=== PATIENT | female | born 1950 | race Caucasian/White ===

== ENCOUNTER → 2022-01-04 14:51 | Outpatient (CLI) | payer MEDICARE, BC, SELFPAY ==
--- NOTE | 2022-01-04 | DI.US.S_ITS ---
PROCEDURE: US PELVIC COMPLETE INDICATIONS: Disseminated malignant neoplasm TECHNIQUE: Real-time scanning was performed of the pelvic organs, with image documentation. Additional endovaginal scanning was necessary due to incomplete visualization of the adnexal and endometrial structures by transabdominal scanning. COMPARISON: [facility], US, PELVIC COMPLETE, 12/14/2010, 14:47. FINDINGS: Uterus: Uterus is anteverted and normal in size at 5.6 x 2.3 x 3.6 cm. The myometrium is homogeneous. The endometrium measures 2 mm combined thickness. No focal uterine mass Ovaries: The right ovary measures 35 mm diameter. Left ovary measures 23 mm diameter. Calcifications are seen within the right ovary. No free fluid. Other: No pathologic free abdominal or pelvic fluid. IMPRESSION: No acute process. We strive to produce accurate, complete, and clear reports of imaging services. To assist us in improving patient care, this report was composed using standard report templates and voice recognition software. Therefore, it may contain abnormal punctuation, insertions and/or omissions. Occasional wrong-word or sound-alike substitutions may occur. Though we review the report and make efforts to correct it, we do recommend that the report be read carefully in proper context to recognize any text inaccuracies. Dictated by: Bisi Ewing M.D. on 01/04/2022 at 17:00 Approved by: Bisi Ewing M.D. on 01/04/2022 at 17:01
== END ==
PROVIDERS: PCP Nurse Practitioner Family; Referring Provider Nurse Practitioner Family; Visit Provider Nurse Practitioner Family
DX: C80.0 Disseminated malignant neoplasm, unspecified (principal)
CPT/HCPCS: 76856

== ENCOUNTER → 2022-01-06 08:46 | Outpatient (CLI) | payer MEDICARE, OTHER, SELFPAY ==
--- NOTE | 2022-01-06 08:49 | DI.NM.S_ITS ---
PROCEDURE: NM PET CT FUSION SKULL 2 THIGH RADIOPHARMACEUTICAL: 10 mCi F-18 fluorodeoxyglucose IV. INDICATIONS: PS/restaging breast ca TECHNIQUE: After intravenous administration of F-18 fluoro-deoxyglucose (FDG), noncontrast CT images were obtained for attenuation correction and anatomic localization. A series of overlapping emission PET images was then obtained. The patient's pretest fasting blood glucose level as measured by glucometer was 80 mg/dl. The area imaged spanned from the skull base to the upper thighs. COMPARISON: [facility], RG, CT ABDOMEN/PELVIS WITH CONTRAST, 12/18/2021, 14:23. FINDINGS: Head and neck: No soft tissue masses in the neck. No enlarged cervical or supraclavicular lymph nodes; no abnormal hai tracer uptake. Salivary and thyroid glands appear normal. Sinuses and mastoids are clear. There are vascular calcifications. Thorax: No enlarged mediastinal, hilar, or axillary lymph nodes. No abnormal hai tracer uptake. No acute pulmonary opacities. No pleural effusions or pneumothorax. Heart size is normal. No pericardial effusion. Small hiatal hernia. Coronary calcifications. Nonspecific nonenlarged mildly hypermetabolic right hilar node measuring SUV max of 2.6. Mildly hypermetabolic right costophrenic angle node measuring at max SUV of 2.8, measuring 7 millimeters in short axis (3/110). Abdomen and pelvis: Liver uptake is heterogeneous, with increased metabolism at the capsule. Hypermetabolic left retroperitoneal para-aortic lymph node with a max SUV of 3.3, measuring 8 millimeters in short axis. Presumed malignant ascites and diffuse peritoneal carcinomatosis, particularly in the anterior pelvis and cul-de-sac, with a max SUV of 9.3. The carcinomatosis measures a thickness of 2.5 centimeters in the left lower quadrant. Gallbladder is under distended. No biliary ductal dilation. Spleen is not enlarged. No adrenal nodule. No hydronephrosis. Atherosclerotic calcifications, without aneurysm. There is nonspecific uptake in the bowel. No bowel obstruction. The stomach is mildly distended. Normal bladder wall thickness. Bones: No definite hypermetabolic osseous lesion. Uptake may be due to degenerative changes. IMPRESSION: Diffuse peritoneal hypermetabolic carcinomatosis and presumed malignant ascites. Hypermetabolic left retroperitoneal para-aortic lymph node is favored to be metastatic. Of note, omental caking is amenable to percutaneous biopsy if confirmation of metastasis is necessary. Nonspecific mildly hypermetabolic right hilar and right cardiophrenic nonenlarged lymph nodes. Heterogeneous uptake around the periphery of the liver is likely due to peritoneal disease. Dictated by: Jean Monahan M.D. on 01/06/2022 at 13:50 Approved by: Jean Monahan M.D. on 01/06/2022 at 14:07
== END ==
PROVIDERS: PCP Nurse Practitioner Family; Visit Provider Family Medicine
DX: C50.919 Malignant neoplasm of unspecified site of unspecified female breast (principal); C78.6 Secondary malignant neoplasm of retroperitoneum and peritoneum

== ENCOUNTER → 2022-03-11 10:14 | Outpatient (CLI) | payer MEDICARE, OTHER, SELFPAY ==
[2022-03-11 10:59] LABS: COVID19 -Nasal RAPID Negative (Negative)
== END ==
PROVIDERS: PCP Internal Medicine Cardiovascular Disease; Visit Provider Surgery
DX: Z01.812 Encounter for preprocedural laboratory examination (principal); Z20.822 Contact with and (suspected) exposure to COVID-19
CPT/HCPCS: 87635

== ENCOUNTER 2022-03-11 11:15 | Day surgery (SDC) | payer MEDICARE, BC, SELFPAY ==
[2022-03-11 14:25] VITALS: BP 141/82; PULSE 81; RESP 16; TEMP 36.9; O2SAT 97; BMI 16.9
[2022-03-11] MEDS: LACTATED RINGERS 1,000 ML 42 ML IV (14:49)
--- NOTE | 2022-03-11 16:14 | PM.HP.1 ---
History of Present Illness History of Present Illness Date Patient Seen: 03/11/22 Time Patient Seen: 16:14 Chief complaint: PORT PLACEMENT Narrative: Dee Dee is a 71-year-old woman who has a recent diagnosis of breast cancer and possible peritoneal carcinomatosis. A Port-A-Cath has been requested for IV infusion access. Patient History Family & Social History Social History: household members spouse Tobacco & Substance use: Smoking Status Former smoker alcohol intake current alcohol intake frequency a few times a week Substance Use Type marijuana Meds Home Medications and Allergies Home Medications Medication Instructions Recorded Confirmed Type Coenzyme Q10 (#CO ENZYME Q-10) 50 mg PO ##0 12/11/10 History Dimethyl Sulfone (#MSM) 250 mg PO ##0 12/11/10 History MULTIVITAMIN (#MULTIPLE VITAMINS) 1 cap PO ##0 12/11/10 History VITAMIN D 400 iu PO ##0 12/11/10 History Exam Vital Signs (past 8 hours): - 03/11/22 14:25 Temperature 98.5 F Pulse Rate 81 Respiratory Rate 16 Blood Pressure 141/82 H Pulse Oximetry 97 Oxygen Delivery Method Room Air Oxygen Delivery Method Room Air Const General: comfortable and No acute distress Assessment & Plan Assessment and plan (1) Breast cancer: Qualifiers: Breast location: unspecified site of breast Estrogen receptor status: unspecified Patient sex: female Laterality: left Qualified Code(s): C50.912 - Malignant neoplasm of unspecified site of left female breast Status: Acute Plan We reviewed the risks and benefits of for Port-A-Cath placement for IV access. She wishes to proceed. Time Spent With Patient Critical Care time: I spent a total of [] minutes of critical care time on this patient's care today; this time is exclusive of procedural time.
[2022-03-11] MEDS: CEFAZOLIN 2 GM/100 ML PREMIX 100 ML IV (16:28)
--- NOTE | 2022-03-11 16:45 | SUR.OPER ---
Supine on padded OR bed, head on pillow, arms padded and tucked at sides, legs uncrossed, safety belt at thigh, tape over blanket over lower legs .
[2022-03-11] MEDS: BUPIVACAINE 0.5% (PF) VIAL 30 ML INJ (16:52)
--- NOTE | 2022-03-11 17:06 | DI.RAD.S_ITS ---
PROCEDURE: XR CHEST 1V INDICATIONS: PORT A CATH INNER OP TECHNIQUE: One view of the chest was acquired. COMPARISON: [facility], , XR CHEST 1V, 03/11/2022, 17:15. FINDINGS: Surgical changes and devices: Right-sided port with the catheter tip at the cavoatrial junction. Visualized lungs appear clear. IMPRESSION: Intraoperative guidance provided. Dictated by: Andry Delarosa M.D. on 03/11/2022 at 17:51 Approved by: Andry Delarosa M.D. on 03/11/2022 at 17:52
[2022-03-11 17:18] VITALS: BP 163/91; PULSE 82; RESP 15; TEMP 36.4; O2SAT 97
--- NOTE | 2022-03-11 17:19 | PM.OP.1 ---
Operative Date/Time/Diagnoses Date of procedure: 03/11/22 Time of procedure: 17:19 Pre-op diagnosis: Breast cancer and possible peritoneal carcinomatosis Post-op diagnosis: same Procedure & Clinicians Procedure: Port-A-Cath Same procedure as scheduled: Yes Surgeon: Jonas Boone Operative Notes Procedure in detail: The patient was brought to the operating room, placed on the table in the supine position with the arms tucked. Ancef was administered. Anesthesia was induced via LMA. A time-out was performed. The right chest and neck were prepped and draped in the usual fashion. An ultrasound was used to identify the right internal jugular vein. The vein was noted to be patent. An image was saved and printed and placed in the chart. The right internal jugular vein was accessed via the Seldinger technique under ultrasound guidance. The guidewire was inserted into the superior vena cava. C-arm was used to confirm proper position of the guidewire in the superior vena cava and no ectopy was noted. The needle was removed and the wire was clamped to the drape. Next, a port pocket was created just inferior to the medial clavicle using a 15 blade scalpel. Dissection was carried down to the pectoral fascia. A subcutaneous pocket was created using a combination of cautery and blunt dissection. Next, the port which was primed with injectable saline, was secured to the fascia with 3-0 PDS sutures left untied and clamped. The neck incision was extended with an 11 blade scalpel to approximately 5 mm. The dilator and peel-away sheath were inserted over the wire without resistance. The catheter was passed from the neck incision to the chest incision in the subcutaneous tissue using the tunnelling device. The wire and dilator were then removed and the catheter inserted through the peel-away sheath to deliver it into the superior vena cava. The depth of the device was checked using the C-arm and the tip of the device was noted to be in the distal superior vena cava. The exterior portion of the catheter was then trimmed and attached to the port using the strain relief collar. A final image showed good position of the catheter with no kinks. The port was then tucked into the subcutaneous pocket and the sutures were tied to secure the device. The port was then accessed using the Munoz needle and it was noted that the device vinay and flushed easily without resistance. Approximately 4 mL of heparinized saline were injected into the device. The skin incisions were closed with 3-0 Vicryl and 4-0 Monocryl. Steri-Strips were applied patient was awakened and brought to recovery room EBL: 5 mL Ultrasound: The right internal jugular vein was patent. The right carotid artery was visualized adjacent to the vein. Venipuncture was visualized in real-time using the ultrasound. Fluoroscopy: The device was positioned appropriately with the distal end of the catheter near the atriocaval junction. There were no kinks in the catheter. Post-operative Disposition: PACU
[2022-03-11 17:23] VITALS: BP 162/93; PULSE 83; RESP 15; O2SAT 99
[2022-03-11 17:28] VITALS: BP 157/94; PULSE 81; RESP 15; O2SAT 99
--- NOTE | 2022-03-11 17:30 | DI.RAD.S_ITS ---
PROCEDURE: XR CHEST 1V INDICATIONS: POST OP PORT A CATH TECHNIQUE: One view of the chest was acquired. COMPARISON: [facility], CR, XR CHEST 1V, 03/11/2022, 17:10. FINDINGS: Surgical changes and devices: Right-sided port with the catheter tip at the cavoatrial junction. Left axillary clips. Lungs and pleura: Lungs are clear. No pleural effusions or pneumothorax. Mediastinum: Mediastinal contours appear normal. Heart size is normal. Bones and chest wall: No suspicious bony lesions. Overlying soft tissues appear unremarkable. IMPRESSION: Right-sided port with the catheter tip at the cavoatrial junction. Dictated by: Andry Delarosa M.D. on 03/11/2022 at 17:52 Approved by: Andry Delarosa M.D. on 03/11/2022 at 17:53
[2022-03-11 17:33] VITALS: BP 156/89; PULSE 80; RESP 11; TEMP 36.3; O2SAT 99
[2022-03-11 17:38] VITALS: BP 159/90; PULSE 79; RESP 13; TEMP 36.4; O2SAT 99
== END 2022-03-11 17:59 | disposition home or self-care (01) ==
PROVIDERS: PCP Internal Medicine Cardiovascular Disease; Referring Provider Surgery; Visit Provider Surgery
PROC: (CPT 36561; principal; 2022-03-11 15:00)
DX: C50.912 Malignant neoplasm of unspecified site of left female breast (principal); Z20.822 Contact with and (suspected) exposure to COVID-19; Z01.812 Encounter for preprocedural laboratory examination
CPT/HCPCS: 36561; 71045; 76000; 87635; C9803; C1788; J0690; J1100; J1644; J2405; J2704; J3010

== ENCOUNTER 2022-03-13 10:30 | Day surgery (SDC) | payer MEDICARE, OTHER, SELFPAY ==
[2022-03-13 11:06] VITALS: BP 126/82; PULSE 78; RESP 16; TEMP 36.8; O2SAT 98
--- NOTE | 2022-03-13 11:41 | SUR.HOLD ---
Dr Boone at bedside accessing right chest wall port-a-cath with 20 gauge -0.75 needle using sterile technique. Good blood return noted; flushes well with saline and heparin flush given. Tolerated well. Munoz needle left in place due to plan for chemotherapy this afternoon with oncologist on [facility]. Home with friend in stable condition. No complications.
== END 2022-03-13 11:43 | disposition home or self-care (01) ==
PROVIDERS: Surgery; PCP Internal Medicine Cardiovascular Disease; Referring Provider Surgery; Visit Provider Surgery
DX: Z53.09 Procedure and treatment not carried out because of other contraindication (principal)

== ENCOUNTER 2022-04-02 09:36 | Emergency (ER) | payer MEDICARE, BC, SELFPAY ==
[2022-04-02] VITALS (8 sets, daily range): BP systolic 121–142; BP diastolic 69–83; PULSE 80–91; RESP 14; TEMP 36.8; O2SAT 96–98; BMI 16.5
--- NOTE | 2022-04-02 10:26 | DI.CT.S_ITS ---
PROCEDURE: CT ABDOMEN PELVIS W CON INDICATIONS: Abdominal distention, history of ovarian cancer TECHNIQUE: After the administration of oral and IV contrast, axial sections were acquired from the lung bases to the pubic symphysis. Coronal and sagittal reformats were performed. For radiation dose reduction, the following was used: automated exposure control, adjustment of mA and/or kV according to patient size. COMPARISON: [facility], , CT ABDOMEN/PELVIS WITHOUT CONTRAST, 12/17/2021, 13:56. [facility], , CT ABDOMEN/PELVIS WITH CONTRAST, 12/18/2021, 14:23. [place], [place], [place] PET CT FUSION SKULL 2 THIGH, 01/06/2022, 10:26. FINDINGS: Image quality: Excellent. Lung bases: Unremarkable. Heart: No significant findings. ABDOMEN: Liver: Unremarkable. Gallbladder: Unremarkable. Biliary ducts: Unremarkable. Pancreas: Unremarkable. Spleen: Unremarkable. Adrenal Glands: Unremarkable. Kidneys and Ureters: Unremarkable. Stomach and Bowel: Moderate wall thickening is seen involving the sigmoid colon. There is an enhancing nodule seen along the surface of the sigmoid, as on series 2, image 64 measuring 21 x 19 mm. No dilated loops of small bowel are seen. Peritoneum: This patient now has moderate ascites. Omental caking is seen, which overall pars worse than on the 01/06/2022 examination. Ventral Wall: No hernia. Abdominal Nodes: No retroperitoneal or mesenteric adenopathy by size criteria. Vessels: Aorta and inferior vena cava are normal in size. Atherosclerotic calcification is noted. PELVIS: Bladder: Unremarkable. Pelvic Nodes: No enlarged lymph nodes. Miscellaneous: No inguinal hernias are seen. Several locules of fluid can be seen within the pelvis, which are new from the prior examination. Enhancing nodules can be seen within the pelvis, including within the right pelvis on series 2, image 62 measuring 3 by 2.3 cm. Bones: Moderate lumbar scoliosis is seen. Age-appropriate bony degenerative changes are seen. IMPRESSION: Moderate ascites is now seen. Worsening of omental caking. Enhancing peritoneal implants are seen. Locules of fluid are also seen within the pelvis. Additional findings: Moderate dextroconvex scoliosis Dictated by: Thompson Disla M.D. on 04/02/2022 at 11:03 Approved by: Thompson Disla M.D. on 04/02/2022 at 11:10
--- NOTE | 2022-04-02 10:26 | ED.GENADULT ---
HPI - General Adult General Chief complaint: Abdominal Pain Stated complaint: fluid to be removed from abd sent by Time Seen by Provider: 04/02/22 09:49 Source: patient Mode of arrival: Ambulatory History of Present Illness HPI narrative: 71-year-old female. History of ovarian cancer. Is not currently being treated medically. She is using acupuncture and turmeric. She has had progressively worsening abdominal discomfort and swelling of her abdomen over the past weeks/months. Today she states that her abdomen is very distended and it got to the point where she could not take it much more so she contacted her primary doctor who told her to come to the emergency department for paracentesis. She is never had a paracentesis in the past. Has no diagnosed liver issues. No fevers. No change in bowel habits. No vomiting. Related Data Home Medications Medication Instructions Recorded Confirmed Coenzyme Q10 (#CO ENZYME Q-10) 50 mg PO ##0 12/11/10 Dimethyl Sulfone (#MSM) 250 mg PO ##0 12/11/10 MULTIVITAMIN (#MULTIPLE VITAMINS) 1 cap PO ##0 12/11/10 VITAMIN D 400 iu PO ##0 12/11/10 Previous Rx's Medication Instructions Recorded hydrocodone 5 mg-acetaminophen 325 1 tab PO Q8H PRN pain #10 tabs 03/11/22 mg tablet Allergies Allergy/AdvReac Type Severity Reaction Status Date / Time No Known Drug Allergies Allergy Verified 04/02/22 10:08 Review of Systems Constitutional Constitutional: Reports system reviewed and no additional complaints, except as documented Respiratory Respiratory: Reports system reviewed and no additional complaints, except as documented Gastrointestinal Gastrointestinal: Reports system reviewed and no additional complaints, except as documented Integumentary/Breasts Skin/Breast: Reports system reviewed and no additional complaints, except as documented Neurologic Neurologic: Reports system reviewed and no additional complaints, except as documented Hematologic/Lymphatic On Anticoagulants: No Patient History Medical History Ovarian cancer Social History household members: spouse Smoking Status: Former smoker alcohol intake: current Smoking Status: Former smoker alcohol intake frequency: a few times a week Substance Use Type: marijuana Exam Initial Vital Signs Initial Vital Signs: Vital Signs Temperature 98.2 F 04/02/22 10:02 Pulse Rate 91 H 04/02/22 10:02 Respiratory Rate 14 04/02/22 10:02 Blood Pressure 121/81 04/02/22 10:02 Pulse Oximetry 98 04/02/22 10:02 Oxygen Delivery Method 04/02/22 10:02 Const General: cooperative and comfortable HENMT Head: normal to inspection and normocephalic Chest Other: Port in right upper chest Resp Effort & Inspection: normal respiratory effort Cardio Rate: regular rate GI Inspection: distended Palpation: firm and tender Skin General: no rashes or lesions noted Neuro General: patient alert and patient awake Extrem General: normal to inspection and capillary refill normal Course Orders Ordered: ED Orders 04/02/22 10:26 CT abdomen pelvis w con Stat 04/02/22 10:30 Basic Metabolic Panel Stat Complete Blood Count AUTO DIFF Stat Hepatic (Liver) Panel Stat Partial Thromboplastin Time Stat Prothrombin Time INR Stat Discontinued Medications Hydrocodone Bitart/Acetaminophen (Hydrocodone/Acet 5/325 Tablet) 1 tab PO NOW ONE Stop: 04/02/22 11:33 Last Admin: 04/02/22 12:04 Dose: 1 tab Documented By: NUVIA Lidocaine HCl (Lidocaine 2% Inj Mdv 20ml) 1 ml SUBCUT NOW ONE Stop: 04/02/22 09:51 Last Admin: 04/02/22 11:22 Dose: Not Given Documented By: SERG Vital Signs Vital signs: Vital Signs - 8 hr 04/02/22 10:41 04/02/22 10:44 04/02/22 10:44 Pulse Rate 83 81 Blood Pressure 133/80 Pulse Oximetry 97 98 Oxygen Delivery Method 04/02/22 11:00 04/02/22 11:00 04/02/22 11:30 Pulse Rate 80 Blood Pressure 137/78 137/77 Pulse Oximetry 96 Oxygen Delivery Method 04/02/22 11:30 04/02/22 12:00 04/02/22 12:06 Pulse Rate 82 83 82 Blood Pressure Pulse Oximetry 97 97 98 Oxygen Delivery Method Room Air 04/02/22 12:06 04/02/22 12:30 04/02/22 12:30 Pulse Rate 88 Blood Pressure 142/83 H 132/69 Pulse Oximetry 98 Oxygen Delivery Method Room Air Medical Decision Making Lab Data Lab results reviewed: Yes I reviewed the patient's lab results. Result diagrams: 04/02/22 10:30 04/02/22 10:30 Labs: Lab Results 04/02/22 04/02/22 04/02/22 Range/Units 10:30 10:30 10:30 WBC 6.7 (4.5-11.0) X10^3/uL RBC 3.82 L (4.0-5.2) X10^6/uL Hgb 11.8 L (12.0-16.0) g/dL Hct 34.8 L (36-46) % MCV 91.2 (80-100) fL MCH 31.0 (26-34) PG MCHC 34.0 (30-36) % RDW 14.6 (11.6-14.8) % Plt Count 416 H (150-400) X10^3/uL Neut % (Auto) 78.7 H (50-75) % Lymph % (Auto) 9.9 L (25-40) % [place] % (Auto) 9.7 (3-14) % Eos % (Auto) 0.5 L (2-4) % Baso % (Auto) 1.2 (0-2) % Neut # (Auto) 5300 (9110-1129) /uL Lymph # (Auto) 700 L (3877-8890) /uL [place] # (Auto) 600 (0-900) /uL Eos # (Auto) 0 (0-450) /uL Baso # (Auto) 100 (0-100) /uL PT 13.2 H (10.1-12.7) SECONDS INR 1.2 (0.9-1.3) APTT 33 (26-36) SECONDS Sodium 140 (137-145) mmol/L Potassium 3.6 (3.4-5.1) mmol/L Chloride 103 (98-107) mmol/L Carbon Dioxide 29 (22-32) mmol/L BUN 18 H (7-17) mg/dL Creatinine 0.49 L (0.52-1.04) mg/dL Estimated GFR > 60 (>60) mL/min BUN/Creatinine Ratio 36.7 H (6-22) Glucose 96 (80-110) mg/dL Calcium 8.7 (8.4-10.2) mg/dL Total Bilirubin 0.5 (0.2-1.3) mg/dL Conjugated Bilirubin 0.0 (0.0-0.3) md/dL Unconjugated Bilirubin 0.5 (0.0-1.1) mg/dL AST 35 (14-36) IU/L ALT 17 (<35) IU/L Alkaline Phosphatase 73 (38-126) U/L Total Protein 6.3 (6.3-8.2) g/dL Albumin 3.4 L (3.5-5.0) g/dL Globulin 2.9 (1.7-4.1) g/dL Albumin/Globulin Ratio 1.2 (1.0-2.8) Imaging Data CT scan - abdomen/pelvis: Radiologist's Impression: [address] [address] [address] Scan Report Signed Patient: Dee Dee Coyle MR#: [id number] : 1950 Acct:[id number] Age/Sex: 71 / F Date of Service: 04/02/22 Loc: ED Accession Number: [id number] ?? Procedure: CT abdomen pelvis w con Ordering Provider: Matthias Monteiro D.O. PROCEDURE:? CT ABDOMEN PELVIS W CON ? INDICATIONS:? Abdominal distention, history of ovarian cancer ? TECHNIQUE:? After the administration of oral and IV contrast, axial sections were acquired from the lung bases to the pubic symphysis.? Coronal and sagittal reformats were performed.? For radiation dose reduction, the following was used:? automated exposure control, adjustment of mA and/or kV according to patient size. ? COMPARISON:? [facility], , CT ABDOMEN/PELVIS WITHOUT CONTRAST, 12/17/2021, 13:56.? [facility], , CT ABDOMEN/PELVIS WITH CONTRAST, 12/18/2021, 14:23.? [place], [place], [place] PET CT FUSION SKULL 2 THIGH, 01/06/2022, 10:26. ? FINDINGS:? Image quality:? Excellent.? ? Lung bases:? Unremarkable.? ? Heart:? No significant findings. ? ? ABDOMEN: Liver:? Unremarkable.? ? Gallbladder:? Unremarkable.? ? Biliary ducts:? Unremarkable.? ? Pancreas:? Unremarkable.? ? Spleen:? Unremarkable.? ? Adrenal Glands:? Unremarkable.? ? Kidneys and Ureters:? Unremarkable.? ? ? Stomach and Bowel:? Moderate wall thickening is seen involving the sigmoid colon.? There is an enhancing nodule seen along the surface of the sigmoid, as on series 2, image 64 measuring 21 x 19 mm. No dilated loops of small bowel are seen. Peritoneum:? This patient now has moderate ascites.? Omental caking is seen, which overall pars worse than on the 01/06/2022 examination. ? Ventral Wall: ? No hernia.? Abdominal Nodes:? No retroperitoneal or mesenteric adenopathy by size criteria.? Vessels:? Aorta and inferior vena cava are normal in size.? Atherosclerotic calcification is noted.? ? PELVIS: Bladder:? Unremarkable.? ? Pelvic Nodes: No enlarged lymph nodes.? Miscellaneous: No inguinal hernias are seen. ? ? Several locules of fluid can be seen within the pelvis, which are new from the prior examination.? Enhancing nodules can be seen within the pelvis, including within the right pelvis on series 2, image 62 measuring 3 by 2.3 cm. ? Bones:? Moderate lumbar scoliosis is seen.? Age-appropriate bony degenerative changes are seen.? ? ? IMPRESSION:? ? Moderate ascites is now seen. ? Worsening of omental caking. ? Enhancing peritoneal implants are seen. ? Locules of fluid are also seen within the pelvis.? Additional findings: Moderate dextroconvex scoliosis ? ? Dictated by: Thompson iDsla M.D. on 04/02/2022 at 11:03 ? ? Approved by: Thompson Disla M.D. on 04/02/2022 at 11:10 MDM Narrative Medical decision making narrative: Patient does have a small amount of ascites however not to the point that would require a paracentesis. The CT scan is concerning for worsening of her ovarian cancer. I discussed this with her. Informed her that she should talk with her primary doctor about further workup to include potentially going to see an oncologist or even talking with hospice/palliative care. Patient asked if she could make a trip to [facility] to get another infusion of turmeric. I told her that this would be fine as long as she did contact her primary doctor for follow-up. She expressed understanding. Discharge Plan Departure Patient Disposition: Home Clinical Impression: Ovarian cancer Activity Restrictions/Additional Instructions: The CT scan today his findings that are concerning for worsening of your ovarian cancer. I recommend that on Tuesday you contact your primary doctor to discuss further management to include potentially seeing Oncology or hospice. Return to the emergency department for any new symptoms. Prescriptions: No Action MULTIVITAMIN (#MULTIPLE VITAMINS) 1 cap PO Qty: 0 Coenzyme Q10 (#CO ENZYME Q-10) 50 mg PO Qty: 0 Dimethyl Sulfone (#MSM) 250 mg PO Qty: 0 VITAMIN D 400 iu PO Qty: 0 hydrocodone-acetaminophen 5-325 mg tablet 1 tab PO Q8H PRN (Reason: pain) Qty: 10 0RF Referrals: Yanick Camp MD [Primary Care Provider] - Visit Report Forms: Patient Portal/API
[2022-04-02 10:45] LABS: Add Manual Diff / Slide Review NO; Basophils Absolute Auto 100 /uL (0-100); Basophils Percent Auto 1.2 % (0-2); Eosinophils Absolute Auto 0 /uL (0-450); Eosinophils Percent Auto 0.5 % (2-4); Hematocrit 34.8 % (36-46); Hemoglobin 11.8 g/dL (12.0-16.0); Lymphocytes Absolute Auto 700 /uL (1100-4500); Lymphocytes Percent Auto 9.9 % (25-40); Mean Corpuscular Volume 91.2 fL (80-100); Monocytes Absolute Auto 600 /uL (0-900); Monocytes Percent Auto 9.7 % (3-14); Neutrophils Absolute Auto 5300 /uL (1500-7000); Neutrophils Percent Auto 78.7 % (50-75); Platelet Count 416 X10^3/uL (150-400); Red Blood Cell Count 3.82 X10^6/uL (4.0-5.2); Red Cell Distribution Width 14.6 % (11.6-14.8); White Blood Cell Count 6.7 X10^3/uL (4.5-11.0)
[2022-04-02 10:51] LABS: INR 1.2 (0.9-1.3); Prothrombin Time 13.2 SECONDS (10.1-12.7)
[2022-04-02 10:54] LABS: PTT Partial Thromboplastin Tim 33 SECONDS (26-36)
[2022-04-02 10:57] LABS: Alanine Aminotransferase 17 IU/L (<35); Albumin 3.4 g/dL (3.5-5.0); Albumin Globulin Ratio 1.2 (1.0-2.8); Alkaline Phosphatase 73 U/L (38-126); Aspartate Aminotransferase 35 IU/L (14-36); BUN Creatinine Ratio 36.7 (6-22); Bilirubin Total 0.5 mg/dL (0.2-1.3); Bilirubin Unconjugated 0.5 mg/dL (0.0-1.1); Blood Urea Nitrogen 18 mg/dL (7-17); Calcium 8.7 mg/dL (8.4-10.2); Carbon Dioxide 29 mmol/L (22-32); Chloride 103 mmol/L (98-107); Estimated Glomerular Filt Rate > 60 mL/min (>60); Globulin 2.9 g/dL (1.7-4.1); Glucose 96 mg/dL (80-110); HEMOLYSIS < 15 (0-50); Potassium 3.6 mmol/L (3.4-5.1); Sodium 140 mmol/L (137-145); Total Protein 6.3 g/dL (6.3-8.2)
[2022-04-02] MEDS: HYDROCODONE/ACET 5/325 TABLET 1 TAB PO (12:04)
== END 2022-04-02 12:56 | disposition home or self-care (01) ==
PROVIDERS: Emergency Provider Emergency Medicine; PCP Internal Medicine Cardiovascular Disease
DX: C56.9 Malignant neoplasm of unspecified ovary (principal); R18.8 Other ascites
CPT/HCPCS: 74177; 80048; 80076; 85025; 85610; 85730; 99284; Q9967

== ENCOUNTER 2022-05-12 18:17 | Emergency (ER) | payer MEDICARE, BC, SELFPAY ==
[2022-05-12 19:04] VITALS: BP 105/70; PULSE 98; RESP 18; TEMP 36.6; O2SAT 99; BMI 16.5
--- NOTE | 2022-05-12 20:06 | DI.CT.S_ITS ---
PROCEDURE: CT ABDOMEN PELVIS W CON INDICATIONS: ABD distention eval for ascites verses masses TECHNIQUE: After the administration of IV contrast, axial sections were acquired from the lung bases to the pubic symphysis. Coronal and sagittal reformats were performed. For radiation dose reduction, the following was used: automated exposure control, adjustment of mA and/or kV according to patient size. COMPARISON: [facility], CT, CT ABDOMEN PELVIS W CON, 04/02/2022, 11:48. FINDINGS: Image quality: Excellent. Lung bases: There is a small right pleural effusion with associated compressive atelectasis. Heart: Heart is normal in size. ABDOMEN: Liver: There is abnormal masslike thickening along the falciform ligament consistent with a peritoneal implant measuring up to approximately 3.2 x 1.8 cm in transverse dimension on series 2, image 41 which appears similar to the prior study. Gallbladder: Within normal limits without calcified gallstones. Biliary ducts: No biliary ductal dilatation. Pancreas: Unremarkable. Spleen: Normal in size. Adrenal Glands: No adrenal nodules. Kidneys and Ureters: No hydronephrosis. Stomach and Bowel: Stomach, small bowel loops, and colon are normal in caliber. No evidence of obstruction. Peritoneum: There is a large amount of ascites in the abdomen which appears increased compared to the prior study. No free air. Diffuse peritoneal implants and omental caking are redemonstrated. A parts sales representative peritoneal implant within the upper abdomen measures up to 2.5 x 2.4 cm on series 2, image 40 decrease in size from 2.9 x 2.8 cm on the prior study. Extensive confluent nodular peritoneal thickening within the lower abdomen and pelvis appears similar to the prior study. The peritoneal mass lesions are contiguous with multiple loops of small and large bowel. Abdominal Wall: No hernia. There is diffuse subcutaneous edema within the abdominal wall compatible with anasarca. Abdominal Nodes: Multiple enlarged retroperitoneal lymph nodes are redemonstrated. These include and aortic caval node measuring up to 1.5 cm on series 2, image 42, slightly increased from 1.2 cm previously. Multiple enlarged mesenteric lymph nodes are also noted. These include a parts sales representative node measuring up to 1.1 cm on series 2, image 55 compared to 0.7 cm previously. Vessels: Aorta and inferior vena cava are normal in size. PELVIS: Pelvic Organs: Unremarkable. Bladder: Unremarkable. Pelvic Nodes: No enlarged lymph nodes. Miscellaneous: No inguinal hernias are seen. Bones: Visualized osseous structures demonstrate no suspicious focal lesions. IMPRESSION: 1. Large amount of ascites appears increased compared to the prior study. 2. Extensive peritoneal carcinomatosis redemonstrated with omental caking, multiple peritoneal implants, and extensive confluent nodular thickening of the peritoneum in the lower abdomen and pelvis. The findings are similar overall compared to the prior study. 3. Retroperitoneal and mesenteric lymphadenopathy appear slightly increased in size compared to the prior study. 4. Small right pleural effusion with associated mild compressive atelectasis. 5. Increased edema within the abdominal wall suggestive of anasarca. Dictated by: Wellington Keating M.D. on 05/12/2022 at 22:14 Approved by: Wellington Keating M.D. on 05/12/2022 at 22:24
--- NOTE | 2022-05-12 20:07 | ED.GENADULT ---
HPI - General Adult General Chief complaint: Abdominal Pain Stated complaint: ABD pain Time Seen by Provider: 05/12/22 20:00 Source: patient and family Mode of arrival: Ambulatory Limitations: no limitations History of Present Illness HPI narrative: 71-year-old female. Does have a history of ovarian cancer who was sent in by her primary doctor for a paracentesis. I have evaluated the patient in the emergency department in the past when she was sent at that time for paracentesis however a bedside ultrasound did not show any signs of ascites and a subsequent CT scan showed findings that were very concerning for metastatic disease. Patient was informed of this. She returns to the emergency department today stating that her doctor told her that she needed another paracentesis. She is having abdominal distention and discomfort. Some nausea. No fevers. No urinary symptoms. She is having problems eating and also states that her lower extremities are swelling. Related Data Home Medications Medication Instructions Recorded Confirmed Coenzyme Q10 (#CO ENZYME Q-10) 50 mg PO ##0 12/11/10 Dimethyl Sulfone (#MSM) 250 mg PO ##0 12/11/10 MULTIVITAMIN (#MULTIPLE VITAMINS) 1 cap PO ##0 12/11/10 VITAMIN D 400 iu PO ##0 12/11/10 Previous Rx's Medication Instructions Recorded hydrocodone 5 mg-acetaminophen 325 1 tab PO Q8H PRN pain #10 tabs 03/11/22 mg tablet Allergies Allergy/AdvReac Type Severity Reaction Status Date / Time No Known Drug Allergies Allergy Verified 04/02/22 10:08 Review of Systems Constitutional Constitutional: Reports system reviewed and no additional complaints, except as documented Cardiovascular Cardiovascular: Reports system reviewed and no additional complaints, except as documented Respiratory Respiratory: Reports system reviewed and no additional complaints, except as documented Gastrointestinal Gastrointestinal: Reports system reviewed and no additional complaints, except as documented Musculoskeletal Musculoskeletal: Reports system reviewed and no additional complaints, except as documented Integumentary/Breasts Skin/Breast: Reports system reviewed and no additional complaints, except as documented Hematologic/Lymphatic On Anticoagulants: No Patient History Medical History Ovarian cancer Social History household members: spouse Smoking Status: Former smoker alcohol intake: current Smoking Status: Former smoker alcohol intake frequency: a few times a week Substance Use Type: marijuana Exam Initial Vital Signs Initial Vital Signs: Vital Signs Temperature 98 F 05/12/22 19:04 Pulse Rate 98 H 05/12/22 19:04 Respiratory Rate 18 05/12/22 19:04 Blood Pressure 105/70 05/12/22 19:04 Pulse Oximetry 99 05/12/22 19:04 Oxygen Delivery Method 05/12/22 19:04 HENMT Head: normal to inspection and normocephalic Resp Effort & Inspection: normal respiratory effort Auscultation: clear to auscultation bilaterally Cardio Rate: regular rate Rhythm: regular rhythm GI Inspection: distended Palpation: firm and tender Neuro General: patient alert, patient awake, patient oriented x3 and moves all extremities Speech: speech normal Extrem General: capillary refill normal Psych Appearance: grossly normal and well kempt Procedures Paracentesis Local Anesthetic: lidocaine 1% Amount of anesthesia used (mL): 2 Fluid: clear Post Procedure Exam: awake, alert, normal BP and normal SpO2 Patient Tolerated Procedure: Well and No complications Course Orders Ordered: ED Orders 05/12/22 20:03 Complete Blood Count AUTO DIFF Stat Comprehensive Metabolic Panel Stat Lipase Stat 05/12/22 20:06 CT abdomen pelvis w con Stat 05/12/22 20:20 EKG-12 Lead Stat 05/13/22 00:27 Body Fluid Culture Stat Cell Count w Diff Body Fluid Stat Discontinued Medications Ondansetron HCl (Ondansetron 4 Mg Odt) 4 mg PO NOW PRN PRN Reason: Nausea And Vomiting Ondansetron HCl (Ondansetron 4 Mg/2 Ml Inj) 4 mg IV NOW PRN PRN Reason: Nausea And Vomiting Vital Signs Vital signs: Vital Signs - 8 hr 05/12/22 23:30 05/13/22 00:15 05/13/22 00:30 Temperature 97.9 F Pulse Rate 90 89 Respiratory Rate 16 20 16 Blood Pressure 116/77 121/77 109/62 Pulse Oximetry 96 99 98 Oxygen Delivery Method Room Air Room Air Room Air 05/13/22 00:40 05/13/22 00:50 05/13/22 01:00 Temperature Pulse Rate 88 88 88 Respiratory Rate 16 16 16 Blood Pressure 106/65 103/58 L 112/64 Pulse Oximetry 99 98 98 Oxygen Delivery Method Room Air Room Air Room Air 05/13/22 01:10 05/13/22 01:20 Temperature Pulse Rate 90 90 Respiratory Rate 16 16 Blood Pressure 112/65 116/66 Pulse Oximetry 99 98 Oxygen Delivery Method Room Air Medical Decision Making Medical Records Medical records reviewed: Yes I reviewed the patient's medical records. Lab Data Lab results reviewed: Yes I reviewed the patient's lab results. Result diagrams: 05/12/22 20:03 05/12/22 20:03 Labs: Lab Results 05/12/22 05/12/22 05/13/22 Range/Units 20: 20: 00:27 WBC 8.3 (4.5-11.0) X10^3/uL RBC 3.99 L (4.0-5.2) X10^6/uL Hgb 12.3 (12.0-16.0) g/dL Hct 37.2 (36-46) % MCV 93.3 (80-100) fL MCH 30.9 (26-34) PG MCHC 33.1 (30-36) % RDW 15.1 H (11.6-14.8) % Plt Count 418 H (150-400) X10^3/uL Neut % (Auto) 86.2 H (50-75) % Lymph % (Auto) 5.6 L (25-40) % [facility] [place] % (Auto) 7.8 (3-14) % Eos % (Auto) 0.1 L (2-4) % Baso % (Auto) 0.3 (0-2) % Neut # (Auto) 7200 H (9374-3706) /uL Lymph # (Auto) 500 L (5239-4944) /uL [facility] [place] # (Auto) 600 (0-900) /uL Eos # (Auto) 0 (0-450) /uL Baso # (Auto) 0 (0-100) /uL Sodium 134 L (137-145) mmol/L Potassium 3.2 L (3.4-5.1) mmol/L Chloride 95 L (98-107) mmol/L Carbon Dioxide 26 (22-32) mmol/L BUN 56 H (7-17) mg/dL Creatinine 1.33 H (0.52-1.04) mg/dL Estimated GFR 42 L (>60) mL/min BUN/Creatinine Ratio 42.1 H (6-22) Glucose 59 L (80-110) mg/dL Calcium 8.3 L (8.4-10.2) mg/dL Total Bilirubin < 0.1 L (0.2-1.3) mg/dL AST 37 H (14-36) IU/L ALT 16 (<35) IU/L Alkaline Phosphatase 91 (38-126) U/L Total Protein 6.2 L (6.3-8.2) g/dL Albumin 3.3 L (3.5-5.0) g/dL Globulin 2.9 (1.7-4.1) g/dL Albumin/Globulin Ratio 1.1 (1.0-2.8) Lipase 76 (23-300) U/L Fluid Color Yellow Fluid Appearance Clear Fluid RBC 37 /uL Fld Tot Nucleated Cell 59 /uL Fluid Polynuclear WBCs 2 % Fluid Mononuclear WBCs 98 % Fluid Eosinophils Not Reportable Fluid Other Cells Not Reportable Body Fluid Clot No clots present Point of Care Testing Test Results Not applicable Urine Dip Bedside Urine Glucose Negative Bedside Urine Bilirubin - Negative Bedside Urine Ketone - Negative Urine Specific Howard 1.03 Bedside Urine Occult Blood - Negative Bedside Urine pH 5.5 Bedside Urine Protein - Negative Bedside Urine Urobilinogen - Negative Bedside Urine Nitrite - Negative Bedside Urine Leukocytes - Negative Esterase Point of care testing: Point of Care Testing Test Results Not applicable Urine Dip Bedside Urine Glucose Negative Bedside Urine Bilirubin - Negative Bedside Urine Ketone - Negative Urine Specific Howard 1.03 Bedside Urine Occult Blood - Negative Bedside Urine pH 5.5 Bedside Urine Protein - Negative Bedside Urine Urobilinogen - Negative Bedside Urine Nitrite - Negative Bedside Urine Leukocytes - Negative Esterase Imaging Data CT scan - abdomen/pelvis: Radiologist's Impression: [place] [address] CT Scan Report Signed Patient: Dee Dee Coyle MR#: [id number] : 1950 Acct:[id number] Age/Sex: 71 / F Date of Service: 05/12/22 Loc: ED Accession Number: [id number] ?? Procedure: CT abdomen pelvis w con Ordering Provider: Matthias Monteiro D.O. PROCEDURE:? CT ABDOMEN PELVIS W CON ? INDICATIONS:? ABD distention eval for ascites verses masses ? TECHNIQUE:? After the administration of IV contrast, axial sections were acquired from the lung bases to the pubic symphysis.? Coronal and sagittal reformats were performed.? For radiation dose reduction, the following was used:? automated exposure control, adjustment of mA and/or kV according to patient size. ? COMPARISON:? [facility], CT, CT ABDOMEN PELVIS W CON, 04/02/2022, 11:48. ? FINDINGS:? Image quality:? Excellent.? ? Lung bases:? There is a small right pleural effusion with associated compressive atelectasis.? ? Heart:? Heart is normal in size. ? ? ABDOMEN: Liver:? There is abnormal masslike thickening along the falciform ligament consistent with a peritoneal implant measuring up to approximately 3.2 x 1.8 cm in transverse dimension on series 2, image 41 which appears similar to the prior study. Gallbladder:? Within normal limits without calcified gallstones.? ? Biliary ducts:? No biliary ductal dilatation.? ? Pancreas:? Unremarkable.? ? Spleen:? Normal in size.? ? Adrenal Glands:? No adrenal nodules.? ? Kidneys and Ureters:? No hydronephrosis.? ? ? Stomach and Bowel:? Stomach, small bowel loops, and colon are normal in caliber.? No evidence of obstruction.? Peritoneum:? There is a large amount of ascites in the abdomen which appears increased compared to the prior study.? No free air.? ? Diffuse peritoneal implants and omental caking are redemonstrated.? A telephone services sales representative peritoneal implant within the upper abdomen measures up to 2.5 x 2.4 cm on series 2, image 40 decrease in size from 2.9 x 2.8 cm on the prior study.? Extensive confluent nodular peritoneal thickening within the lower abdomen and pelvis appears similar to the prior study.? The peritoneal mass lesions are contiguous with multiple loops of small and large bowel. ? Abdominal Wall: ? No hernia.? There is diffuse subcutaneous edema within the abdominal wall compatible with anasarca.? Abdominal Nodes:? Multiple enlarged retroperitoneal lymph nodes are redemonstrated.? These include and aortic caval node measuring up to 1.5 cm on series 2, image 42, slightly increased from 1.2 cm previously.? Multiple enlarged mesenteric lymph nodes are also noted.? These include a telephone services sales representative node measuring up to 1.1 cm on series 2, image 55 compared to 0.7 cm previously. Vessels:? Aorta and inferior vena cava are normal in size.? ? PELVIS: Pelvic Organs:? Unremarkable.? ? Bladder:? Unremarkable.? ? Pelvic Nodes: No enlarged lymph nodes.? Miscellaneous: No inguinal hernias are seen. ? ? ? Bones:? Visualized osseous structures demonstrate no suspicious focal lesions. ? IMPRESSION:? ? 1.? Large amount of ascites appears increased compared to the prior study. ? 2. Extensive peritoneal carcinomatosis redemonstrated with omental caking, multiple peritoneal implants, and extensive confluent nodular thickening of the peritoneum in the lower abdomen and pelvis.? The findings are similar overall compared to the prior study. ? 3. Retroperitoneal and mesenteric lymphadenopathy appear slightly increased in size compared to the prior study.? ? 4. Small right pleural effusion with associated mild compressive atelectasis. ? 5. Increased edema within the abdominal wall suggestive of anasarca.? ? Dictated by: Wellington Keating M.D. on 05/12/2022 at 22:14 ? ? Approved by: Wellington Keating M.D. on 05/12/2022 at 22:24?? ECG Data Attestation: I personally reviewed and interpreted this ECG as follows: Interpretation: Sinus rhythm Ventricular rate of 53 Frequent PACs Normal QRS Nonspecific ST T wave changes Normal axis MDM Narrative Medical decision making narrative: The CT scan was ordered today because of my prior interactions with her where she did not have any indication of ascites but the abdominal distention was related to what was most likely metastatic disease. The CT scan today does show ascites which is new compared to prior. There continues to be findings that are concerning for metastatic disease. I did inform the patient of this. Informed her that she needed to talk with her primary doctor or whoever was managing her ovarian cancer a bump this. Her was at bedside for this. We discussed the risks and benefits of the paracentesis. She is never had 1 before. Between 4 and 4-1/2 L of clear fluid was removed. Patient tolerated the procedure well. The fluid was sent for cell count and cytology. Patient was informed that she did not need to follow-up with her primary doctor regarding the results of this. Will discharge patient home with return precautions Discharge Plan Departure Patient Disposition: Home Clinical Impression: Ascites Instructions: DI for Abdominal Paracentesis Activity Restrictions/Additional Instructions: We did send a sample of the fluid that we remove to the lab. This take several days to result. I do recommend you contact your primary doctor for a follow-up. Return to the emergency department for any new symptoms. Prescriptions: No Action MULTIVITAMIN (#MULTIPLE VITAMINS) 1 cap PO Qty: 0 Coenzyme Q10 (#CO ENZYME Q-10) 50 mg PO Qty: 0 Dimethyl Sulfone (#MSM) 250 mg PO Qty: 0 VITAMIN D 400 iu PO Qty: 0 hydrocodone-acetaminophen 5-325 mg tablet 1 tab PO Q8H PRN (Reason: pain) Qty: 10 0RF Referrals: Yanick Camp MD [Primary Care Provider] - Stand Alone Forms: Patient Portal/API
[2022-05-12 20:14] LABS: Add Manual Diff / Slide Review NO; Basophils Absolute Auto 0 /uL (0-100); Basophils Percent Auto 0.3 % (0-2); Eosinophils Absolute Auto 0 /uL (0-450); Eosinophils Percent Auto 0.1 % (2-4); Hematocrit 37.2 % (36-46); Hemoglobin 12.3 g/dL (12.0-16.0); Lymphocytes Absolute Auto 500 /uL (1100-4500); Lymphocytes Percent Auto 5.6 % (25-40); Mean Corpuscular HGB Conc 33.1 % (30-36); Mean Corpuscular Hemoglobin 30.9 PG (26-34); Mean Corpuscular Volume 93.3 fL (80-100); Monocytes Absolute Auto 600 /uL (0-900); Monocytes Percent Auto 7.8 % (3-14); Neutrophils Absolute Auto 7200 /uL (1500-7000); Neutrophils Percent Auto 86.2 % (50-75); Platelet Count 418 X10^3/uL (150-400); Red Blood Cell Count 3.99 X10^6/uL (4.0-5.2); Red Cell Distribution Width 15.1 % (11.6-14.8); White Blood Cell Count 8.3 X10^3/uL (4.5-11.0)
[2022-05-12 20:32] LABS: Alanine Aminotransferase 16 IU/L (<35); Albumin 3.3 g/dL (3.5-5.0); Albumin Globulin Ratio 1.1 (1.0-2.8); Alkaline Phosphatase 91 U/L (38-126); Aspartate Aminotransferase 37 IU/L (14-36); BUN Creatinine Ratio 42.1 (6-22); Blood Urea Nitrogen 56 mg/dL (7-17); Calcium 8.3 mg/dL (8.4-10.2); Carbon Dioxide 26 mmol/L (22-32); Chloride 95 mmol/L (98-107); Estimated Glomerular Filt Rate 42 mL/min (>60); Globulin 2.9 g/dL (1.7-4.1); Glucose 59 mg/dL (80-110); HEMOLYSIS < 15 (0-50); Lipase 76 U/L (23-300); Potassium 3.2 mmol/L (3.4-5.1); Sodium 134 mmol/L (137-145); Total Protein 6.2 g/dL (6.3-8.2)
[2022-05-12 20:35] LABS: Bilirubin Total < 0.1 mg/dL (0.2-1.3)
[2022-05-12 23:30] VITALS: BP 116/77; RESP 16; O2SAT 96
[2022-05-13] VITALS (7 sets, daily range): BP systolic 103–121; BP diastolic 58–77; PULSE 88–90; RESP 16–20; TEMP 36.6; O2SAT 98–99
--- NOTE | 2022-05-13 00:16 | PC.NURSE ---
Pt signed consent form for paracentesis. Pt's questions have been answered by Dr. Monteiro. after using IV ultrasound, Dr. Monteiro has decided to access via the LUQ of the abdomen. Pt is tolerating procedure well.
--- NOTE | 2022-05-13 00:52 | PC.NURSE ---
Paracentesis complete. 4000cc of abdominal fluid have been removed. Pt reports feeling relief of abdominal pressure and denies CP, SOB, dizziness. This RN will continue to monitor.
[2022-05-13 01:22] LABS: Body Fluid Red Blood Cells 37 /uL; Body Fluid Tot Nucleated Cells 59 /uL
[2022-05-13 01:23] LABS: Body Fluid Appearance CLEAR; Body Fluid Clotted? NO CLOTS PRESENT; Body Fluid Color YELLOW
[2022-05-13 01:40] LABS: Mononuclear WBC Body Fluid 98 %; Polynuclear WBC Body Fluid 2 %
== END 2022-05-13 01:45 | disposition home or self-care (01) ==
PROVIDERS: Emergency Provider Emergency Medicine; PCP Internal Medicine Cardiovascular Disease
DX: R18.8 Other ascites (principal); R10.9 Unspecified abdominal pain; I49.1 Atrial premature depolarization; R03.1 Nonspecific low blood-pressure reading
CPT/HCPCS: 49082; 74177; 80053; 81003; 81025; 83690; 85025; 87070; 87075; 87205; 89051; 93005; 93010; 99284; Q9967